=== PATIENT | male | born 1990 | race Caucasian/White ===

== ENCOUNTER 2017-07-11 14:29 | Emergency (ER) | payer OTHER ==
[~2017-07-11] VITALS: Ht 177.8 cm; Wt 65.7 kg
[~2017-07-11 14:29] MED LIST: BND25 PO; CITA20TA9 PO; QUET1TAB9 PO
[2017-07-11 14:41] VITALS: TEMP 36.4; Ht 177.8 cm; Wt 65.7 kg
[2017-07-11] MEDS ORDERED: ONDANSETRON INJ 2 MG/ML 2 ML VIAL IV STA (14:45)
[2017-07-11] MEDS ORDERED: SODIUM CHLORIDE 0.9% 500ML 500 ML IV STA (14:45)
[2017-07-11] MEDS ORDERED: SODIUM CHLORIDE 0.9% 1000ML 1,000 ML IV STA ×2 (14:45→16:53)
--- NOTE | 2017-07-11 14:54 | EMERGENCY ROOM VISIT NOTE ---
History Report prepared by Jameyibe: Tanesha Li Under the Supervision of: Dr. Vicenta Smith M.D. First contact with patient: 14:39 Chief Complaint: DEHYDRATION Stated Complaint: NAUSEA History of Present Illness The patient is a 27 year old male who presents to the Emergency Room with complaints of constant nausea beginning today. He notes abdominal pain, shakes, headache, and vomiting. The patient states he was riding to a [employer] bike "trying to go to [place] to rescue his girlfriend from a homeless jail". He notes he has never met his girlfriend in person and that they have been dating for 2 months. The patient denies any falls or injuries, he states that he just got sick on the side of the road The patient denies taking any medications, smoking marijuana. He notes he has been admitted about a year ago for mental health. The patient states he has not taken any of his psych medications since March. Source of History: patient Onset: today Timing: constant Associated Symptoms: + headache, + nausea, + vomiting Review of Systems See HPI for pertinent positives & negatives. A total of 10 systems reviewed and were otherwise negative. Past Medical & Surgical Medical Problems: (1) Anxiety (2) Bipolar disorder (3) Depression (4) Mood disorder Family History No pertinent family history stated. Social History Smoking Status: Current Every Day Smoker Alcohol Use: none Drug Use: marijuana Marital Status: single Occupation Status: disabled Current/Historical Medications Scheduled Divalproex Sodium (Depakote Delay Rel), 250 MG PO QAM Divalproex Sodium (Depakote Delay Rel), 500 MG PO HS Hydroxyzine Pamoate (Vistaril), 1 DOSE PO UD Allergies Coded Allergies: No Known Allergies (Unverified , NONE, 02/28/15) Physical Exam Vital Signs Date Time Temp Pulse Resp B/P (MAP) Pulse Ox O2 Delivery O2 Flow Rate FiO2 07/11/17 16:56 86 18 125/44 100 Room Air 07/11/17 14:41 36.4 99 18 125/56 98 Room Air 07/11/17 14:41 79 Physical Exam Vital signs reviewed. General: Poor overall hygiene, in no significant distress. Slurred speech. HEENT: No scleral icterus, PERRLA, neck supple. Atraumatic. Cardiovascular: Regular rate and rhythm, no extra sounds. Pulmonary: Clear to auscultation bilaterally, normal work of breathing. Abdomen: Soft, nontender, nondistended, positive bowel sounds. Musculoskeletal: Atraumatic, no peripheral edema. Neurologic: Patient awake alert and oriented x 3, full strength in all 4 extremities. Cranial nerves 2 through 12 grossly intact. Skin: Warm, dry, no rash Medical Decision & Procedures Laboratory Results 07/11/17 13:45 Red Blood Count 4.85, Mean Corpuscular Volume 85.4, Mean Corpuscular Hemoglobin 29.9, Mean Corpuscular Hemoglobin Concent 35.0, Mean Platelet Volume 12.9, Neutrophils (%) (Auto) 89.1, Lymphocytes (%) (Auto) 5.8, Monocytes (%) (Auto) 4.7, Eosinophils (%) (Auto) 0.0, Basophils (%) (Auto) 0.1, Neutrophils # (Auto) 16.00, Lymphocytes # (Auto) 1.05, Monocytes # (Auto) 0.84, Eosinophils # (Auto) 0.00, Basophils # (Auto) 0.02 07/11/17 13:45 Test 07/11/17 13:45 07/11/17 14:45 07/11/17 15:04 07/11/17 17:20 White Blood Count 17.97 K/uL (4.8-10.8) Red Blood Count 4.85 M/uL (4.7-6.1) Hemoglobin 14.5 g/dL (14.0-18.0) Hematocrit 41.4 % (42-52) Mean Corpuscular Volume 85.4 fL (80-100) Mean Corpuscular Hemoglobin 29.9 pg (25-34) Mean Corpuscular Hemoglobin Concent 35.0 g/dl (32-36) Platelet Count 218 K/uL (130-400) Mean Platelet Volume 12.9 fL (7.4-10.4) Neutrophils (%) (Auto) 89.1 % Lymphocytes (%) (Auto) 5.8 % Monocytes (%) (Auto) 4.7 % Eosinophils (%) (Auto) 0.0 % Basophils (%) (Auto) 0.1 % Neutrophils # (Auto) 16.00 K/uL (1.4-6.5) Lymphocytes # (Auto) 1.05 K/uL (1.2-3.4) Monocytes # (Auto) 0.84 K/uL (0.11-0.59) Eosinophils # (Auto) 0.00 K/uL (0-0.5) Basophils # (Auto) 0.02 K/uL (0-0.2) RDW Standard Deviation 41.8 fL (36.4-46.3) RDW Coefficient of Variation 13.5 % (11.5-14.5) Immature Granulocyte % (Auto) 0.3 % Immature Granulocyte # (Auto) 0.06 K/uL (0.00-0.02) Anion Gap 16.0 mmol/L (3-11) Est Creatinine Clear Calc Drug Dose 85.9 ml/min Estimated GFR () 95.5 Estimated GFR (Non- 82.4 BUN/Creatinine Ratio 22.5 (10-20) Calcium Level 10.0 mg/dl (8.5-10.1) Magnesium Level 1.7 mg/dl (1.8-2.4) Total Bilirubin 1.2 mg/dl (0.2-1) Direct Bilirubin 0.3 mg/dl (0-0.2) Aspartate Amino Transf (AST/SGOT) 31 U/L (15-37) Alanine Aminotransferase (ALT/SGPT) 30 U/L (12-78) Alkaline Phosphatase 50 U/L (45-117) Total Creatine Kinase 147 U/L (39-308) Total Protein 7.8 gm/dl (6.4-8.2) Albumin 4.9 gm/dl (3.4-5.0) Lipase 61 U/L (73-393) Thyroid Stimulating Hormone (TSH) 0.556 uIu/ml (0.300-4.500) Salicylates Level < 1.7 mg/dl (2.8-20) Acetaminophen Level < 2 ug/ml (10-30) Ethyl Alcohol mg/dL < 3.0 mg/dl (0-3) Laboratory results per my review. Medications Administered Medications (Trade) Dose Ordered Sig/Elsie Route Start Time Stop Time Status Last Admin Dose Admin Sodium Chloride 500 ml @ 999 mls/hr Q31M STAT IV 07/11/17 14:45 07/11/17 15:15 DC 07/11/17 14:45 999 MLS/HR Sodium Chloride 1,000 ml @ 200 mls/hr Q5H STAT IV 07/11/17 14:45 07/11/17 19:44 07/11/17 14:45 200 MLS/HR Ondansetron HCl (Zofran Inj) 4 mg NOW STAT IV 07/11/17 14:45 07/11/17 14:46 DC 07/11/17 15:00 4 MG Sodium Chloride 1,000 ml @ 999 mls/hr Q1H1M STAT IV 07/11/17 16:53 07/11/17 17:53 07/11/17 16:53 999 MLS/HR ECG Indication: nausea Rate (beats per minute): 88 Rhythm: normal sinus Findings: no acute ischemic change ED Course 1443: Past medical records reviewed. The patient was evaluated in room A12B. A complete history and physical examination was performed. 1445: Zofran Inj 4 mg IV, Sodium Chloride 1000 ml @ 200 mls/hr IV, Sodium Chloride 500 ml @ 999 mls/hr IV. 1653: Sodium Chloride 1000 ml @ 999 mls/hr IV. Medical Decision Differential diagnosis: dehydration, medication effect, trauma, viral illness, substance abuse, and rhabdomyolysis This patient was evaluated and appeared to be in no significant distress. IV access was obtained and laboratory work was drawn. Patient was hydrated with normal saline solution. He was placed on the rn cardiac and found to be in a normal sinus rhythm. Vital signs are stable. Patient's laboratory work reveals a leukocytosis, consistent with his physical exertion and dehydration. Patient was able to provide a urine specimen after 2 L of fluid plus Gatorade. This reveals ketones and protein. There is no evidence of rhabdomyolysis. Patient was seen by mental health special education case manager and felt not to be a danger to himself or others. The patient is stable for discharge and secure transportation arrangements are being made by case management. Patient was advised to see his primary care physician as well as psychiatry in follow-up. He will return to the ER for worsening of symptoms or any medical concerns. Medication Reconcilliation Current Medication List: was personally reviewed by me Blood Pressure Screening Patient's blood pressure: Normal blood pressure Impression Primary Impression: Dehydration Additional Impression: Nausea Scribe Attestation The scribe's documentation has been prepared under my direction and personally reviewed by me in its entirety. I confirm that the note above accurately reflects all work, treatment, procedures, and medical decision making performed by me. Departure Information Referrals No Doctor, Assigned (PCP) Patient Instructions My [facility] Problem Qualifiers
[2017-07-11] MEDS ORDERED: DIVA500T5 PO (15:08)
[2017-07-11] MEDS ORDERED: DIVA250T4 PO (15:08)
[2017-07-11] MEDS ORDERED: HYDR25CA PO (15:08)
[2017-07-11 15:16] LABS: BASO % 0.1 %; BASO ABS # 0.02 K/uL (0-0.2); COMPLETE YES; HEMATOCRIT 41.4 % (42-52); IG% 0.3 %; LYMPH % 5.8 %; LYMPH ABS # 1.05 K/uL (1.2-3.4); MEAN CELL VOLUME 85.4 fL (80-100); MEAN CORPUSCULAR HEMOGLOBIN 29.9 pg (25-34); MEAN PLATELET VOLUME 12.9 fL (7.4-10.4); MONO % 4.7 %; NEUT % 89.1 %; PLATELET COUNT 218 K/uL (130-400); RED BLOOD COUNT 4.85 M/uL (4.7-6.1); WHITE BLOOD COUNT 17.97 K/uL (4.8-10.8)
[2017-07-11 15:35] LABS: ACETAMINOPHEN < 2 ug/ml (10-30)
[2017-07-11 15:42] LABS: BUN/CREATININE RATIO 22.5 (10-20); CREATININE 1.2 mg/dl (0.60-1.40); THYROID STIMULATING HORMONE 0.556 uIu/ml (0.300-4.500)
[2017-07-11 16:05] LABS: MAGNESIUM 1.7 mg/dl (1.8-2.4); POTASSIUM 4.2 mmol/L (3.5-5.1)
[2017-07-11 17:57] LABS: URINE APPEARANCE CLEAR (CLEAR); URINE BILIRUBIN NEG (NEG); URINE COLOR YELLOW; URINE NITRITE NEG (NEG); URINE SPECIFIC GRAVITY 1.029 (1.000-1.030); UROBILINOGEN NEG (NEG); ZZUR CULT IF INDIC CLEAN CATCH NO
[2017-07-11 18:02] LABS: MANUAL MICROSCOPIC REQUIRED? NO; REVIEW REQ? NO
[2017-07-11 18:42] VITALS: BP 95/83; PULSE 86; O2SAT 98
[2017-07-11 20:15] LABS: BENZODIAZEPINE, URINE NEG (NEG); COCAINE,URINE NEG (NEG); PHENCYCLIDINE, URINE NEG (NEG)
== END 2017-07-11 18:45 | disposition home or self-care (01) ==
LOC: EDBD 14:29 → C.EDA 14:33
DX: E86.0 Dehydration (principal); R11.0 Nausea; F41.9 Anxiety disorder, unspecified; F31.9 Bipolar disorder, unspecified; F32.9 Major depressive disorder, single episode, unspecified; F17.200 Nicotine dependence, unspecified, uncomplicated; F12.90 Cannabis use, unspecified, uncomplicated; Z79.899 Other long term (current) drug therapy